=== PATIENT | female | born 1970 | race Caucasian/White ===

== ENCOUNTER 2023-01-08 12:38 | Outpatient (CLI) | payer BC ==
[2023-01-08 14:25] LABS: Hemoglobin 12.2 g/dL (12.0-15.5); Mean Corpuscular HGB CONC 31.4 g/dL (32.0-36.0); Mean Corpuscular Hemoglobin 27.4 pg (27.0-33.0); Mean Corpuscular Volume 87.2 fl (81.6-98.3); Mean Platelet Volume 9.5 fl (7.4-10.4); Platelet Count 295 10x3/uL (150-450); Red Blood Cell (RBC) Count 4.45 10x6/uL (3.90-5.03); White Blood Cell (WBC) Count 7.1 10x3/uL (3.5-10.5)
[2023-01-08 14:54] LABS: BHCG - Serum Negative (NEGATIVE); Pregs Control Background? CLEAR/WHITE (CLR/WHITE); Pregs Control Bar Appear? YES (CONTROL BAR)
[2023-01-08 15:17] LABS: Bilirubin Neg (Negative); Blood, Urine 50 (Negative); Clarity Clear (Clear); Glucose, Urine (Dipstick) Normal (Negative); Ketone, Urine Negative (Negative); Leukocyte Negative (Negative); Nitrite Negative (Negative); Protein, Urine (Dipstick) Negative (Neg-Trace); Urobilinogen Normal mg/dL (Less than 2)
== END 2023-01-08 12:39 | disposition home or self-care (01) ==
LOC: CSHLAB 12:38
PROVIDERS: ATTEND Obstetrics & Gynecology
DX: Z01.812 Encounter for preprocedural laboratory examination (principal); D25.9 Leiomyoma of uterus, unspecified; N85.2 Hypertrophy of uterus; N92.0 Excessive and frequent menstruation with regular cycle
CPT/HCPCS: 81003; 84703; 85027

== ENCOUNTER 2023-01-12 05:33 | Day surgery (SDC) | payer BC ==
[2023-01-08 14:05] VITALS: BMI 24.8
[2023-01-12] MEDS ORDERED: Bupivacaine HCl 0.5%/Epinephrine 1:200,000/PF 30 ml Vial ONE (06:23)
[2023-01-12] MEDS ORDERED: Silver Nitrate Application 1 EACH ONE (06:24)
[2023-01-12] MEDS ORDERED: Midazolam HCl 2 mg/2 ml Vial ONE (06:35)
[2023-01-12] MEDS ORDERED: PROPOFOL 20 ML ONE (06:35)
[2023-01-12] MEDS ORDERED: Dexamethasone 20 MG/5 ML VIAL ONE (06:35)
[2023-01-12] MEDS ORDERED: Ondansetron PF 4 MG/2 ML Vial ONE (06:35)
[2023-01-12] MEDS ORDERED: Lidocaine 1% PF 5 ML VIAL ONE ×2 (06:35)
[2023-01-12] MEDS ORDERED: Rocuronium Bromide 10 MG/ML (10ML VIAL) ONE (06:35)
[2023-01-12] MEDS ORDERED: Fentanyl 250 MCG/5 ML VIAL ONE (06:35)
[2023-01-12] MEDS ORDERED: CEFAZOLIN 2 GM VIAL ONE (06:40)
[2023-01-12] MEDS ORDERED: Famotidine/PF 20 mg/2ml Vial ONE (06:57)
[2023-01-12] MEDS ORDERED: Fentanyl 100 MCG/2 ML VIAL ONE (10:16)
[2023-01-12] MEDS ORDERED: HYDROcodone/Acetaminophen 7.5/325 mg Tablet ONE (12:03)
== END 2023-01-12 15:00 | disposition home or self-care (01) ==
LOC: CSHSDC 05:33
PROVIDERS: ATTEND Obstetrics & Gynecology
PROC: 0UT74ZZ Resection of Bilateral Fallopian Tubes, Percutaneous Endoscopic Approach (ICD-10-PCS; principal; 2023-01-12)
PROC: 0UT94ZZ Resection of Uterus, Percutaneous Endoscopic Approach (ICD-10-PCS; principal; 2023-01-12)
DX: D25.9 Leiomyoma of uterus, unspecified (principal); N80.03 Adenomyosis of the uterus; D64.9 Anemia, unspecified; Z79.899 Other long term (current) drug therapy; Z90.49 Acquired absence of other specified parts of digestive tract
CPT/HCPCS: 36415; 85014; 85018; 88307; C1776; J1100; J2250; J2405; J2704; J3010; Q9968; S0028